=== PATIENT | male | born 1950 | race Caucasian/White ===

== ENCOUNTER 2019-01-10 14:19 | Inpatient (IN) ==
[2019-01-10] MEDS ORDERED: LISINOPRIL 10 MG TABLET PO ONE (14:30)
[2019-01-10] MEDS ORDERED: amLODIPine BESYLATE 5 MG TABLET PO PRN (14:34)
[2019-01-10 14:45] LABS: Hematocrit 38.6 % (42.0-52.0); Hemoglobin 12.8 gm/dL (13.5-18.0); Mean Cell Volume 86.7 fl (78-100); Mean Corpuscular Hemoglobin 28.8 pg (27-31); Mean Corpuscular Hgb Conc 33.2 g/dl (32-36); Mean Platelet Volume 9.6 fl (8-11.3); Neutrophil # 10.1 K/mm3 (1.3-6.0); Neutrophil % 84.1 % (42-75.0); Platelet Count 333 K/mm3 (150-450); Red Blood Count 4.45 M/mm3 (4.7-6.0); Red Cell Distribution Width 13.8 % (11.5-14.0)
--- NOTE | 2019-01-10 14:50 | ERNOTE ---
Medical Problem HPI - General Chief Complaint: General Assessment Time Seen by Provider: 01/10/19 14:19 Source: patient Exam Limitations: clinical condition - Immun/Allergies/Home Medications Immunizations: IMMUNIZATION HX Immunizations Up to Date Yes History of Influenza Vaccine No Hx Pneumococcal Vaccination Yes Allergies/Adverse Reactions: Allergies No Known Allergies Allergy (Verified 01/10/19 14:25) Home Medications: HOME MEDICATIONS amlodipine 5 mg tablet 5 mg PO DAILY #90 tab 09/28/18 [Last Taken Unknown] aspirin 325 mg tablet,delayed release 325 mg PO DAILY #90 tab 09/28/18 [Last Taken Unknown] lisinopril 10 mg tablet 10 mg PO DAILY #90 tab 09/28/18 [Last Taken Unknown] - History of Present History Narrative: Patient lives by himself with home health checking on him. When they came today it appeared that he has had no food and possibly no water for a few days. Patient states that he did not eat anything for a few says as he didn't make it to the store. He has not taken any of his medication as he didn't have them (wasn't able to pick them up? had no money for them?) He denies any physical complaints at this time, knows his name and location but not the time or situation, admits to smoking cigarettes According to the chart he has a history of stroke and memory loss, seemed confused at his last office visit. Neck mass per note was evaluated By Dr Anaya and is benign He has also been seen for an adenocarcinoma in the past, no records available of that at this time. Patient decided on no intervention at that time? Patient is currently not aware that he has cancer Review of Systems - Review of Systems Constitutional: Present: fatigue. Absent: recent illness, fever ENT: Absent: nose congestion, sore throat Respiratory: Absent: shortness of breath, cough Cardiology: Absent: chest pain Gastrointestinal/Abdominal: Absent: nausea, vomiting, abdominal pain Genitourinary: Present: no symptoms reported Musculoskeletal: Absent: back pain Neurological: Present: weakness - generalized. Absent: headache Medical History (Updated 01/10/19 @ 17:13 by Regina Torres MD) Adenocarcinoma CKD (chronic kidney disease) stage 3, GFR 30-59 ml/min Onset Date: 03/26/16 GFR - 54 H/O TIA (transient ischemic attack) and stroke Onset Date: 03/21/16 HTN (hypertension) Onset Date: 03/21/16 Hyperlipidemia Onset Date: 03/21/16 Low vitamin B12 level Onset Date: 03/26/16 Memory loss Onset Date: Unknown Neck mass Onset Date: Unknown Osteoarthritis Onset Date: 03/21/16 Bilateral TKA Tobacco abuse Onset Date: Unknown Surgical History: Surgical History (Updated 01/10/19 @ 17:13 by Regina Torres MD) mediastinoscopy with lymphnode disection. 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 - benign tubular adenoma, benign hyperplastic polyp, tubulovillous adenoma Hx of knee surgery 1979 Hx of total knee replacement 2004 bilateral Kidney stone removal 2003 Family History: Family History (Updated 01/03/18 @ 06:18 by Demi Maya) Brother CVA (cerebral vascular accident) Social History: (Last Reviewed 01/10/19 @ 14:25 by Susan Hairston RN) Social History: Marital status: current occupational status: retired Service: No Tobacco: Smoking Status: Current every day smoker Alcohol: alcohol intake: former details: Used to drink heavily. Quit age 60. Now occasionally. Substance Use: substance use type: marijuana Dietary Habits: caffeine: Yes caffeine comment: Current every day Physical Exam - Physical Exam General Appearance: Present: wd/wn, alert, no apparent distress, thin Head Exam: Present: normal inspection, no evidence of injury Eye Exam: Normal inspection: bilateral, PERRL: bilateral Ears, Nose, Throat: Present: normal ENT inspection, dry mucous membranes Neck: Present: normal inspection - except, lymphadenopathy (R) - mobile, non tener Respiratory: Present: no respiratory distress, no accessory muscle use, lungs clear, decreased breath sounds Cardiovascular/Chest: Present: regular rate, rhythm, no murmur Gastrointestinal/Abdominal: Present: normal bowel sounds, nontender, nondistended, soft Extremity Exam: Present: no edema Neurological Exam: Present: alert, normal mood/affect, no motor/sensory deficits, disoriented to time, disoriented to situation. Absent: disoriented to person, disoriented to place Skin Exam: Present: normal color, warm/dry Progress - Results and Orders Patient's Lab Results:: I have reviewed the patient's lab results. - Vital Signs Patient's Vital Signs:: I have reviewed the patient's vital signs. Vital Signs: Vital Signs 01/10/19 14:21 01/10/19 14:40 01/10/19 14:41 Temperature 37.4 C Pulse Rate 79 74 74 Respiratory Rate 14 Blood Pressure 203/110 H 197/105 H 197/105 H O2 Sat by Pulse Oximetry 95 - X-Ray X-Ray #1 X-Ray: chest - large upper obe mass Interpretation: Reviewed by me - CT/Ultrasound CT/Ultrasound Narrative: CT head: IMPRESSION: 1. No evidence for acute intracranial hemorrhage. 2. Localized area of low density within the central right cerebellar hemisphere, with loss of flores-white matter differentiation and potential localized edema. Differential diagnosis includes possible mass versus acute to subacute infarct. 3. Additional areas of low density within the inferior right cerebellar hemisphere, left occipital lobe, and left caudate nucleus suggestive of old infarcts. 4. Paranasal sinus disease as above. 5. Lesion within the left parotid gland suspicious for potential malignancy, either primary to the parotid gland versus metastatic disease. This was demonstrated on previous soft tissue neck CT from 10/05/2018. 6. Mild ventriculomegaly without sulcal effacement. Consider normal pressure hydrocephalus. 7. Consider further evaluation by brain MRI without and with contrast. 8. Additional comments as above. - Progress/Reassessment Chief Complaint: General Assessment Progress Note-Subjective: 01/10/19 15:30 blood pressure continue to be elevated in spite of oral medication, will treat with IV labetolol 01/10/19 16:27 discussed test results with patient and friends who are present, friend states that she brings him food every day and he eats at least a small amount blood pressure elevated to 200 systolic again, will treat with full dose of labetalol 01/10/19 16:28 discussed with neri Hutson to admit for hypertensive urgeny she will see patient here before admission to the floor Departure Clinical Impression: Asymptomatic hypertensive urgency, Confusion, Mass of left lung - Departure Disposition: Still a patient Condition: Stable
[2019-01-10 15:14] LABS: ALT 10 U/L (19-67); AST 16 U/L (0-48); Albumin * 2.6 gm/dl (3.4-5.0); Alkaline Phosphatase * 81 U/L (50-170); Anion Gap 17.6 mmol/L (6.8-13.8); Bilirubin, Total 0.5 mg/dL (0.0-1.1); Blood Urea Nitrogen 20 mg/dL (6-23); Ca. Corrected For Albumin 10.1 mg/dL (8.4-10.2); Calcium * 9.3 mg/dL (7.9-10.9); Carbon Dioxide 25.6 mmol/L (24-32.6); Chloride 104 mmol/L (97-106); Glucose * 94 mg/dL (70-110); Potassium 3.2 mmol/L (3.4-4.6); Sodium 144 mmol/L (132-142); Total Protein 7.2 gm/dL (6.2-8.2)
[2019-01-10] MEDS ORDERED: LABETALOL HCL 5 MG/ML VIAL IV ONE ×2 (15:28→16:27)
--- NOTE | 2019-01-10 17:13 | HP ---
Chief Complaint - Chief Complaint Date of Service: 01/10/19 Time of Service: 16:45 Chief Complaint: Elevated blood pressure, failure to thrive History of Present Illness: 68-year-old male with a past medical history of Warthins tumor hypertension, hyperlipidemia, osteoarthritis, tobacco abuse presents from home after being found by home health with elevated blood pressure, significant weight loss and poor self-care. The home health aide called his primary care's office to inform him of the patient's condition and he was to the sent to the emergency department. In the emergency department he was found to have a blood pressure of 211/105. He was started on labetalol and his home blood pressure medications were restarted. The patient had not been refilling his blood pressure medications at home. He had been having friends bring him food to eat. He was found to have a mild leukocytosis, mild anemia, and mild hyperkalemia. He is being admitted for hypertensive urgency. Mild hyponatremia. Medical History (Updated 01/10/19 @ 17:18 by Regina Torres MD) Adenocarcinoma CKD (chronic kidney disease) stage 3, GFR 30-59 ml/min Onset Date: 03/26/16 GFR - 54 H/O TIA (transient ischemic attack) and stroke Onset Date: 03/21/16 HTN (hypertension) Onset Date: 03/21/16 Hyperlipidemia Onset Date: 03/21/16 Low vitamin B12 level Onset Date: 03/26/16 Memory loss Onset Date: Unknown Neck mass Onset Date: Unknown Osteoarthritis Onset Date: 03/21/16 Bilateral TKA Tobacco abuse Onset Date: Unknown Surgical History: Surgical History (Updated 01/10/19 @ 17:13 by Regina Torres MD) mediastinoscopy with lymphnode disection. 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 - benign tubular adenoma, benign hyperplastic polyp, tubulovillous adenoma Hx of knee surgery 1979 Hx of total knee replacement 2004 bilateral Kidney stone removal 2003 Family History: Family History (Updated 01/03/18 @ 06:18 by Demi Maya) Brother CVA (cerebral vascular accident) Social History: (Last Reviewed 01/10/19 @ 14:25 by Susan Hairston RN) Social History: Marital status: current occupational status: retired Service: No Tobacco: Smoking Status: Current every day smoker Alcohol: alcohol intake: former details: Used to drink heavily. Quit age 60. Now occasionally. Substance Use: substance use type: marijuana Dietary Habits: caffeine: Yes caffeine comment: Current every day Review Of Systems (GEN) - Review of Systems Generalized/Overall Review: Absent: Chills, Fever EENTM: Absent: Eye Pain Respiratory: Absent: Shortness of Breath Cardiac: Absent: Chest Pain Abdominal: Absent: Abdominal Pain Misc: All systems neg except as marked Immunizations: IMMUNIZATION HX Immunizations Up to Date Yes History of Influenza Vaccine No Hx Pneumococcal Vaccination Yes Allergies/Adverse Reactions: Allergies Allergy/AdvReac Type Severity Reaction Status Date / Time No Known Allergies Allergy Verified 01/10/19 14:25 Exam - Exam Vital Signs: Vital Signs - Last Taken Temp 37.4 C 01/10/19 14:21 Pulse 75 01/10/19 16:38 Resp 15 01/10/19 15:46 BP 209/93 H 01/10/19 16:38 Pulse Ox 95 01/10/19 15:46 Constitutional: Present: Alert, Thin and frail, Looks Older than stated age. Absent: Oriented x3 - Oriented to person and place not time ENT Exam: Present: hearing grossly normal Eye Exam: bilateral eye: normal inspection, PERRL, EOMI Neck: Present: non-tender. Absent: lymphadenopathy (R), lymphadenopathy (L) Back Exam: Present: no CVA tenderness, no vertebral tenderness Respiratory: Present: lungs clear, normal breath sounds, no accessory muscle use, No wheezing. Absent: crackles, rhonchi Cardiovascular/Chest: Present: normal peripheral pulses, regular rate, rhythm, no edema Peripheral Pulses: dorsalis-pedis (R): 1+, dorsalis-pedis (L): 1+ Abdomen: Present: Normal bowel sounds, soft, nontender Skin Exam: Present: normal color, warm/dry Neurologic: Present: alert Appearance: Present: disheveled, impaired insight Eye contact: Present: cooperative, good eye contact Thoughts: Present: normal mood /affect Diagnostic Studies: Abnormal Lab Results 01/10/19 01/10/19 Range/Units 14:40 14:40 WBC 12.0 H (4.0-10.5) K/mm3 RBC 4.45 L (4.7-6.0) M/mm3 Hgb 12.8 L (13.5-18.0) gm/dL Hct 38.6 L (42.0-52.0) % Immature Gran % (Auto) 0.50 H (0.001-0.429) % Immature Gran # (Auto) 0.06 H (0.000-0.0310) K/mm3 Neutrophils % 84.1 H (42-75.0) % Lymphocytes % 7.7 L (20-51) % Neutrophils # 10.1 H (1.3-6.0) K/mm3 Lymphocytes # 0.92 L (1.5-3.5) k/mm3 Sodium 144 H (132-142) mmol/L Plasma Sodium 144 H (130-142) mmol/L Potassium 3.2 L (3.4-4.6) mmol/L Anion Gap 17.6 H (6.8-13.8) mmol/L Creatinine 1.43 H (0.4-1.4) mg/dL Est GFR (Non-Af Amer) 52 L (60-130) mL/min ALT 10 L (19-67) U/L Albumin 2.6 L (3.4-5.0) gm/dl Laboratory Results WBC 12.0 K/mm3 (4.0-10.5) H 01/10/19 14:40 RBC 4.45 M/mm3 (4.7-6.0) L 01/10/19 14:40 Hgb 12.8 gm/dL (13.5-18.0) L 01/10/19 14:40 Hct 38.6 % (42.0-52.0) L 01/10/19 14:40 MCV 86.7 fl (78-100) 01/10/19 14:40 MCH 28.8 pg (27-31) 01/10/19 14:40 MCHC 33.2 g/dl (32-36) 01/10/19 14:40 RDW 13.8 % (11.5-14.0) 01/10/19 14:40 Plt Count 333 K/mm3 (150-450) 01/10/19 14:40 MPV 9.6 fl (8-11.3) 01/10/19 14:40 Immature Gran % (Auto) 0.50 % (0.001-0.429) H 01/10/19 14:40 Immature Gran # (Auto) 0.06 K/mm3 (0.000-0.0310) H 01/10/19 14:40 84.1 % (42-75.0) H 01/10/19 14:40 7.7 % (20-51) L 01/10/19 14:40 6.0 % (0.0-9) 01/10/19 14:40 1.3 % (0.0-3.0) 01/10/19 14:40 0.4 % (0.0-1.0) 01/10/19 14:40 Nucleated RBC % 0.0 k/mm3 (0-1) 01/10/19 14:40 10.1 K/mm3 (1.3-6.0) H 01/10/19 14:40 0.92 k/mm3 (1.5-3.5) L 01/10/19 14:40 0.7 k/mm3 (0.0-1.0) 01/10/19 14:40 0.2 k/mm3 (0.0-0.7) 01/10/19 14:40 Absolute Basophils 0.1 k/mm3 (0.0-0.1) 01/10/19 14:40 Sodium 144 mmol/L (132-142) H 01/10/19 14:40 144 mmol/L (130-142) H 01/10/19 14:40 Potassium 3.2 mmol/L (3.4-4.6) L 01/10/19 14:40 Chloride 104 mmol/L (97-106) 01/10/19 14:40 Carbon Dioxide 25.6 mmol/L (24-32.6) 01/10/19 14:40 17.6 mmol/L (6.8-13.8) H 01/10/19 14:40 BUN 20 mg/dL (6-23) D 01/10/19 14:40 1.43 mg/dL (0.4-1.4) H 01/10/19 14:40 Est GFR (Non-Af Amer) 52 mL/min (60-130) L 01/10/19 14:40 14.0 (9.0-21.6) 01/10/19 14:40 94 mg/dL (70-110) 01/10/19 14:40 Calcium 9.3 mg/dL (7.9-10.9) 01/10/19 14:40 Calcium Adj for Albumin 10.1 mg/dL (8.4-10.2) 01/10/19 14:40 0.5 mg/dL (0.0-1.1) 01/10/19 14:40 AST 16 U/L (0-48) 01/10/19 14:40 ALT 10 U/L (19-67) L 01/10/19 14:40 81 U/L (50-170) 01/10/19 14:40 7.2 gm/dL (6.2-8.2) 01/10/19 14:40 2.6 gm/dl (3.4-5.0) L 01/10/19 14:40 Ethyl Alcohol Less than 3.0 mg/dL (0.0-10.0) 01/10/19 14:40 Assessment/Plan - Narrative Narrative: 68-year-old male with a past medical history of Warthins tumor hypertension, hyperlipidemia, osteoarthritis, tobacco abuse presents from home after being found by home health with elevated blood pressure, significant weight loss and poor self-care. In the emergency department he was found to have a blood pressure of 211/105. He is being admitted for hypertensive urgency. Resume his home blood pressure medications of lisinopril and amlodipine. His blood pressures trending down with IV labetalol. If he is agreeable on discharge he will need to follow-up with a tree tapping laborer or hematology/oncology for work-up of the left lung mass. - Assessment/Plan (1) Asymptomatic hypertensive urgency Problem: Acute (2) Confusion Problem: Chronic (3) Hyperlipidemia Problem: Chronic (4) CKD (chronic kidney disease) stage 3, GFR 30-59 ml/min Problem: Chronic (5) Mass of left lung Problem: Chronic
[2019-01-10] MEDS ORDERED: POTASSIUM BICARBONATE/CIT AC 25 MEQ TABLET.EFF PO ONE (17:23)
[2019-01-11 05:55] LABS: Albumin * 2.3 gm/dl (3.4-5.0); Anion Gap 13.1 mmol/L (6.8-13.8); BUN/Creatinine Ratio 16.4 (9.0-21.6); Bilirubin, Total 0.4 mg/dL (0.0-1.1); Ca. Corrected For Albumin 9.4 mg/dL (8.4-10.2); Calcium * 8.4 mg/dL (7.9-10.9); Carbon Dioxide 25.9 mmol/L (24-32.6); Total Protein 6.5 gm/dL (6.2-8.2)
[2019-01-11] MEDS ORDERED: LISINOPRIL 10 MG TABLET PO SCH ×2 (09:00→10:15)
[2019-01-11] MEDS ORDERED: POTASSIUM BICARBONATE/CIT AC 25 MEQ TABLET.EFF PO ONE ×2 (09:03→13:56)
[2019-01-11] MEDS: amLODIPine BESYLATE 5 MG TABLET PO SCH (09:42)
[2019-01-11 09:56] LABS: Urine Bilirubin Negative (NEGATIVE); Urine Blood Negative /ul (NEGATIVE); Urine Ketone 5 mg/dL (NEGATIVE); Urine Nitrite Negative (NEGATIVE); Urine Protein 15 mg/dL (NEGATIVE); Urine Urobilinogen Normal (NORMAL)
[2019-01-11 10:03] LABS: Urine Appearance Clear (CLEAR); Urine Color Amber
[2019-01-11 10:06] LABS: Urine WBC None Seen /hpf (0-5)
[2019-01-11 10:07] LABS: Urine Bacteria None Seen; Urine Hyaline Cast TRACE /LPF; Urine RBC None Seen /hpf (0-5)
[2019-01-11 10:09] LABS: Cocaine Ur Negative (NEGATIVE); Urine Barbiturate Negative (NEGATIVE); Urine Benzodiazepines Negative (NEGATIVE); Urine Opiates Negative (NEGATIVE); Urine PCP Negative (NEGATIVE)
[2019-01-11 10:22] LABS: Urine THC Positive (NEGATIVE)
--- NOTE | 2019-01-11 13:31 | PN ---
Subjective - Date and Time Seen Date: 01/11/19 Time: 09:05 Subjective Narrative: He feels well today, no complaints. Objective - Review of Systems Generalized/Overall Review: Denies: Chills, Fever Respiratory: Denies: Shortness of Breath Cardiac: Denies: Chest Pain Abdominal: Denies: Abdominal Pain Musculoskeletal Complaints: Denies: Joint Pain Misc: All systems neg except as marked - Vitals Vitals: Last Vital Signs Temp 36.5 C 01/11/19 10:00 Pulse 69 01/11/19 10:30 Resp 20 01/11/19 10:00 BP 154/90 H 01/11/19 10:00 Pulse Ox 98 01/11/19 10:00 - Abnormal Lab Findings Abnormal Lab Findings: Abnormal Lab Results 01/10/19 01/10/19 01/11/19 Range/Units 14:40 14:40 05:34 WBC 12.0 H (4.0-10.5) K/mm3 RBC 4.45 L (4.7-6.0) M/mm3 Hgb 12.8 L (13.5-18.0) gm/dL Hct 38.6 L (42.0-52.0) % Immature Gran % (Auto) 0.50 H (0.001-0.429) % Immature Gran # (Auto) 0.06 H (0.000-0.0310) K/mm3 Neutrophils % 84.1 H (42-75.0) % Lymphocytes % 7.7 L (20-51) % Neutrophils # 10.1 H (1.3-6.0) K/mm3 Lymphocytes # 0.92 L (1.5-3.5) k/mm3 Sodium 144 H (132-142) mmol/L Plasma Sodium 144 H (130-142) mmol/L Potassium 3.2 L 3.0 L (3.4-4.6) mmol/L Anion Gap 17.6 H (6.8-13.8) mmol/L Creatinine 1.43 H (0.4-1.4) mg/dL Est GFR (Non-Af Amer) 52 L 59 L (60-130) mL/min ALT 10 L 13 L (19-67) U/L Albumin 2.6 L 2.3 L (3.4-5.0) gm/dl Urine Protein (NEGATIVE) mg/dL Urine Marijuana (THC) (NEGATIVE) 01/11/19 01/11/19 Range/Units 08:00 08:00 WBC (4.0-10.5) K/mm3 RBC (4.7-6.0) M/mm3 Hgb (13.5-18.0) gm/dL Hct (42.0-52.0) % Immature Gran % (Auto) (0.001-0.429) % Immature Gran # (Auto) (0.000-0.0310) K/mm3 Neutrophils % (42-75.0) % Lymphocytes % (20-51) % Neutrophils # (1.3-6.0) K/mm3 Lymphocytes # (1.5-3.5) k/mm3 Sodium (132-142) mmol/L Plasma Sodium (130-142) mmol/L Potassium (3.4-4.6) mmol/L Anion Gap (6.8-13.8) mmol/L Creatinine (0.4-1.4) mg/dL Est GFR (Non-Af Amer) (60-130) mL/min ALT (19-67) U/L Albumin (3.4-5.0) gm/dl Urine Protein 15 H (NEGATIVE) mg/dL Urine Marijuana (THC) Positive H (NEGATIVE) - Exam Constitutional: Present: Alert, No distress, Thin and frail, Looks Older than stated age. Absent: Oriented x3 - Oriented to person and place, Well developed, Well nourished ENT Exam: Present: hearing grossly normal Neck: Present: lymphadenopathy (L). Absent: lymphadenopathy (R) Respiratory: Present: lungs clear, no accessory muscle use, No wheezing. Absent: crackles Cardiovascular/Chest: Present: normal peripheral pulses, regular rate, rhythm, no murmur Abdomen: Present: Normal bowel sounds, soft, nontender Extremity: Present: non-tender, no pedal edema Skin Exam: Present: normal color, warm/dry Neurologic: Present: alert, normal mood/affect Appearance: Present: disheveled Eye contact: Present: cooperative, good eye contact Thoughts: Present: normal mood /affect Assessment/Plan Plan Narrative: 68-year-old male with a past medical history of Warthins tumor hypertension, hyperlipidemia, osteoarthritis, tobacco abuse presents from home after being found by home health with elevated blood pressure, significant weight loss and poor self-care. In the emergency department he was found to have a blood pressure of 211/105. He is being admitted for hypertensive urgency. Resume his home blood pressure medications of lisinopril and amlodipine. His blood pressures have improved but his BP increased with ambulation to 180- 190/80, I will give one dose of IV lopressor 5mg. I will increase his lisinopril to 20 mg daily. He has a h/o of left lung mass and per his daughter in law he had refused surgical resection of the mass several years ago. He continues to not want the surgical intervention at this time. Since he is refusing treatment he may be a good candidate for hospice. He will remain hospitalized pending discharge plan. He is not stable enough to return home alone. He was not taking good care of himself and was not compliant with his blood pressure medication. - Problems/Diagnosis (1) Asymptomatic hypertensive urgency Problem: Acute (2) Confusion Problem: Chronic (3) Hyperlipidemia Problem: Chronic (4) CKD (chronic kidney disease) stage 3, GFR 30-59 ml/min Problem: Chronic (5) Mass of left lung Problem: Chronic (6) Hypokalemia Problem: Acute Narrative: Replete as needed, repeat CMP in the morning. (7) Failure to thrive in adult Problem: Acute
[2019-01-11] MEDS ORDERED: METOPROLOL TARTRATE 1 MG/ML AMPUL IV ONE (15:39)
[2019-01-11] MEDS ORDERED: LISINOPRIL 20 MG TABLET PO ONE (18:00)
[2019-01-11] MEDS: NICOTINE 7 MG PATC TD SCH (19:57)
[2019-01-11] MEDS: LORazepam 0.5 MG TABLET PO PRN (19:57)
[2019-01-11] MEDS: TAMSULOSIN HCL 0.4 MG CAP.SR.24H PO SCH (19:58)
[2019-01-12] MEDS: LORazepam 0.5 MG TABLET PO PRN ×3 (03:18→18:40)
[2019-01-12 06:04] LABS: Albumin * 2.5 gm/dl (3.4-5.0); Anion Gap 15.6 mmol/L (6.8-13.8); BUN/Creatinine Ratio 12.6 (9.0-21.6); Bilirubin, Total 0.5 mg/dL (0.0-1.1); Ca. Corrected For Albumin 9.2 mg/dL (8.4-10.2); Calcium * 8.3 mg/dL (7.9-10.9); Carbon Dioxide 26.4 mmol/L (24-32.6); Total Protein 6.1 gm/dL (6.2-8.2)
--- NOTE | 2019-01-12 09:21 | PN ---
Subjective - Date and Time Seen Date: 01/12/19 Time: 09:21 Subjective Narrative: Patient was agitated and restless yesterday evening, and having difficulty urinating. Nursing reported bladder spasms while trying to catheterize him. His BP elevated again, and was given an extra dose of 20 mg lisinopril. He was started on 0.5 mg ativan. This morning, he is less responsive per report, and does not answer questions. Objective - Review of Systems Generalized/Overall Review: Reports: No Symptoms Reported - patient not answering questions - Vitals Vitals: Last Vital Signs Temp 37.3 C 01/12/19 08:38 Pulse 98 01/12/19 08:38 Resp 24 H 01/12/19 08:38 BP 206/106 H 01/12/19 08:38 Pulse Ox 96 01/12/19 08:38 - Abnormal Lab Findings Abnormal Lab Findings: Abnormal Lab Results 01/11/19 01/11/19 01/12/19 Range/Units 08:00 08:00 05:00 Anion Gap 15.6 H (6.8-13.8) mmol/L ALT 15 L (19-67) U/L Total Protein 6.1 L (6.2-8.2) gm/dL Albumin 2.5 L (3.4-5.0) gm/dl Urine Protein 15 H (NEGATIVE) mg/dL Urine Marijuana (THC) Positive H (NEGATIVE) - Exam Constitutional: Present: No distress, Thin and frail Neck: Present: other - 6X3 cm right upper lateral neck mass Respiratory: Present: lungs clear, no respiratory distress Cardiovascular/Chest: Present: regular rate, rhythm Abdomen: Present: Normal bowel sounds /Rectal: Present: Other - enlarged prostate. Positive anal wink Extremity: Absent: lower extremity edema Neurologic: Present: other - does not answer questions or make eye contact Assessment/Plan - Problems/Diagnosis (1) Confusion Problem: Chronic Narrative: Confusion is listed as a problem in his chart. He is not answering questions for me today, which seems to be new since yesterday. He was started on 0.5 mg ativan yesterday evening for agitation, which may be why he is less responsive. He did not have significant electrolyte abnormalites on labs today, but his albumin is low. If he does not have significant po intake, will need to administer IV fluids with dextrose. There is also some concern for PRES, with his change in mental status and very high blood pressure. While doing this note, I checked on him again, and he is sitting up, making eye contact, so he is more alert than earlier, making PRES less likely. Would recommend a brain MRI for changes in mentation, should they occur over the next few days. (2) Mass of left lung Problem: Chronic Narrative: Chart review shows this mass has been present, and he declined surgical intervention. He also has a visible right upper neck mass, and CT imagine done in September showed suspicious masses of the right and left parotids. There is a documented 18 pound weight loss since 11/29/18. He is not able to make decisions currently, and case management is helping determine who is able to make medical decisions for him. If he declined intervention, he is an appropriate hospice candidate. (3) Prostate enlargement Problem: Acute Narrative: Dr. Varner was consulted, who plans on placing a catheter in the OR if consent is obtained. (4) Urinary retention Problem: Acute (5) CKD (chronic kidney disease) stage 3, GFR 30-59 ml/min Problem: Chronic (6) Hypertension Problem: Chronic Qualifiers: Hypertension type: essential hypertension Qualified Code(s): I10 - Essential (primary) hypertension Narrative: Is currently prescribed 5 mg amlodipine, and 20 mg lisinopril. He had highly elevated BP again last night, greater than 200/100, and an additional 20 mg lisinopril was given. BP today is 180's/90's. Will plan on decreasing his BP by 25% in 24 hours, with a goal of 160/100 by tonight. His elevated BP may also be due to agitation, or urinary retention. His BP was down to 112/67 on 01/10, and he had several low readings that day. If his BP is still elevated over the next few hours, recommend increasing daily lisinopril to 40 mg.
[2019-01-12] MEDS: amLODIPine BESYLATE 5 MG TABLET PO SCH (10:11)
[2019-01-12] MEDS: LISINOPRIL 20 MG TABLET PO SCH (10:11)
--- NOTE | 2019-01-12 13:08 | CONS ---
HPI - General Date of Service: 01/12/19 Source: RN/MD - History of Present Illness Initial Comments: 68-year-old male who I am consulted on for difficult Rodriguez catheter placement. Of note the patient is delirious/demented and is unable to provide any kind of history whatsoever. All history comes from discussion with nursing or physician. Apparently he has metastatic lung cancer and was admitted for delirium. Sounds like palliative situation. Apparently he has been unable to void significant amounts and just dribbles. We do not have a bladder scanner available on the floor but nursing thinking he is having difficulties urinating. They have attempted to place a coud catheter x2 without success. I do not have any known urological history on him. Allergies/Adverse Reactions: Allergies No Known Allergies Allergy (Verified 01/10/19 14:25) Home Medications: Home Medications Medication Instructions Recorded Last Taken amlodipine 5 mg tablet 5 mg PO DAILY #90 tab 09/28/18 Unknown aspirin 325 mg tablet,delayed 325 mg PO DAILY #90 tab 09/28/18 Unknown release lisinopril 10 mg tablet 10 mg PO DAILY #90 tab 09/28/18 Unknown Procedures Plain Radiography of Bladder (01/12/18) Medications - Medications Current Medications: Current Medications Amlodipine Besylate (Norvasc) 5 mg PO DAILY [facility] Stop: 02/10/19 09:01 Last Admin: 01/12/19 10:11 Dose: 5 mg Documented by: Lisinopril (Zestril) 20 mg PO DAILY [facility] Stop: 02/11/19 09:01 Last Admin: 01/12/19 10:11 Dose: 20 mg Documented by: Lorazepam (Ativan) 0.5 mg PO Q6H PRN PRN Reason: Anxiety Stop: 02/10/19 19:16 Last Admin: 01/12/19 10:11 Dose: 0.5 mg Documented by: Nicotine (Nicoderm) 7 mg TD Q24H [facility] Stop: 02/10/19 20:01 Last Admin: 01/11/19 19:57 Dose: 7 mg Documented by: Tamsulosin HCl (Flomax) 0.4 mg PO DAILY@1800 [facility] Stop: 02/10/19 20:01 Last Admin: 01/11/19 19:58 Dose: 0.4 mg Documented by: Review of Systems - Review of Systems Narrative: unable to obtain because of patient condition. Physical Examination - Exam Vital Signs: Vital Signs - Last Taken Temp 97.9 F 01/12/19 09:23 Pulse 104 H 01/12/19 10:11 Resp 28 H 01/12/19 09:23 BP 188/90 H 01/12/19 10:11 Pulse Ox 94 01/12/19 09:23 O2 Oxygen Delivery Method Room Air Constitutional: Present: Thin and frail, Looks Younger than stated age ENT Exam: Present: normal ENT inspection, pharynx normal Neck: Present: full range of motion Respiratory: Present: lungs clear Cardiovascular/Chest: Present: normal peripheral pulses, regular rate, rhythm Abdomen: Present: soft, nontender, other - bladder palpable /Rectal: Present: External genitalia normal, Other - Attempted to place an 18 Fr Coude. Nursing had to help hold down because noncooperative. Patient was prepped and draped. Catheter was advanced but seem to curl up within the prostate and despite some maneuvering I was unable to successfully place a catheter Appearance: Present: disheveled Thoughts: Present: incoherent - Results and Findings: Narrative: Patient appears to be in retention and unable to place a catheter on the floor because of patient being uncooperative and likely BPH although stricture disease is possible After discussion with the primary team we feel like a catheter is needed. I will thus add him on for cystoscopy with catheter placement likely over a wire. Possible urethral dilation. He does not have any family to consent and he is himself on consent verbal. However I am declaring this somewhat of an emergency and in the patient's best interest given the clinical situation. Lab/Microbiology results last 24 hrs: Abnormal/Pending Laboratory Last 24 HRS 01/12/19 05:00 Anion Gap 15.6 H ALT 15 L Total Protein 6.1 L Albumin 2.5 L
--- NOTE | 2019-01-12 13:25 | ANES ---
Anesthesia Pre Procedure Eval Vitals/Labs: Last Vital Signs Temp 36.6 C 01/12/19 09:23 Pulse 104 H 01/12/19 10:11 Resp 28 H 01/12/19 09:23 BP 188/90 H 01/12/19 10:11 Pulse Ox 94 01/12/19 09:23 HOME MEDICATIONS amlodipine 5 mg tablet 5 mg PO DAILY #90 tab 09/28/18 [Last Taken Unknown] aspirin 325 mg tablet,delayed release 325 mg PO DAILY #90 tab 09/28/18 [Last Taken Unknown] lisinopril 10 mg tablet 10 mg PO DAILY #90 tab 09/28/18 [Last Taken Unknown] Allergies/Adverse Reactions: Allergies Allergy/AdvReac Type Severity Reaction Status Date / Time No Known Allergies Allergy Verified 01/10/19 14:25 - Planned Procedure Planned Procedure: Confusion, Hypertension Urgency Medication List Reviewed:: Yes Allergies Verified: Yes Medical History (Updated 01/12/19 @ 12:57 by Kirstin Mckoy DO) CVA (cerebral vascular accident) ~2011 (approximate onset) Parotid tumor Onset Date: 01/20/18 Right, Warthin's tumor 01/20/18 Primary lung adenocarcinoma Onset Date: 12/21/17 pt has not had treatment/ surgical intervention since diagnosed in 11/2017 Adenocarcinoma Onset Date: 12/21/17 Left Lung upper lobe CKD (chronic kidney disease) stage 3, GFR 30-59 ml/min Onset Date: 03/26/16 GFR - 54 H/O TIA (transient ischemic attack) and stroke Onset Date: 03/21/16 HTN (hypertension) Onset Date: 03/21/16 Hyperlipidemia Onset Date: 03/21/16 Low vitamin B12 level Onset Date: 03/26/16 Memory loss Onset Date: Unknown Neck mass Onset Date: Unknown Osteoarthritis Onset Date: 03/21/16 Bilateral TKA Tobacco abuse Onset Date: Unknown Surgical History (Updated 01/11/19 @ 04:44 by Tiffanie Owens RN) mediastinoscopy with lymphnode disection. 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 Polyps removed - benign tubular adenoma, benign hyperplastic polyp, tubulovillous adenoma Hx of knee surgery 1979 Hx of total knee replacement 2005 bilateral Kidney stone removal 2004 Family History (Updated 01/03/18 @ 06:18 by Demi Maya) Brother CVA (cerebral vascular accident) - Family Anesthesia History Family History:: no untoward family reactions to anesthesia - Airway/Neck/Teeth Within Normal Limits:: Yes Teeth Condition: poor condition Neck Exam: full range of motion Mallampatti Score: 1 Thyromental (T-M) distance: > 6 cm Mandibulo Hyoid distance: > 3 cm - Respiratory Respiratory Physical: decreased breath sounds Smoking Status: Former smoker Sleep Apnea currently treated: No Sleep Apnea by current assessment: No - Cardiovascular Cardiac History: TIA Tolerate Activity: Poor Heart Sounds: S1 & S2, Regular - Anesthesia Assessment and Plan ASA Class: PS, III, E Anesthesia Type Plan: MAC Planned difficult intubation/equipment available: No
[2019-01-12] MEDS ORDERED: NORMAL SALINE 1,000 ML IV ONE (13:55)
[2019-01-12] MEDS ORDERED: ceFAZolin SODIUM 1 GM VIAL IV ONE (14:00)
--- NOTE | 2019-01-12 14:20 | OR ---
Operative Report - Dictated Report Narrative: Procedure performed: Flexible cystoscopy with a difficult Rodriguez insertion over a wire Preoperative diagnosis: Urinary retention, inability to place a catheter Postoperative diagnosis: Urinary retention Anesthesia: General Specimen: Bladder wash for urine culture Blood loss: None Findings: Minor irritation in the proximal bulbar urethra insistent with attempted catheter placements, mild prostate enlargement, distended bladder with debris Description the procedure: Patient was brought to the operating room in urgent fashion after failed attempted catheter placement multiple times on the floor. He was consented via his [id number]. General anesthesia was induced using rapid sequence induction. He was prepped and draped in supine position a flexible cystoscope was passed easily down the urethra until I came to the bulbar urethra. There was some irritation of the bulbar urethra consistent with attempted catheter placement. However I was able to navigate through this without significant difficulty. The prostate was mildly enlarged but not significantly obstructive and there was no median lobe. The bladder was distended. There was some debris. Sample was obtained through the scope for culture. A wire was placed through the scope and scope removed. Over the wire to [address] [place] catheter was advanced. Bladder was drained. Patient tolerated well. Plan: Leave the catheter until at least 1 week. Long-term will be dependent on patient medical condition. If indwelling catheter is long-term solution the catheter should be able to be changed in 4 weeks. Given his delirium there is a risk for inadvertent pulling on the catheter. The catheter should be taped down to his leg to try to minimize the chance of this.
--- NOTE | 2019-01-12 14:30 | ANES ---
Post Anesthesia Discharge - Transfer of Care Transfer of Care handoff given to nurse: Yes - Anesthesia Post Op Note Anesthesia Post Op Note: discharged to room 112
--- NOTE | 2019-01-12 14:31 | ANES ---
Post Anesthesia Assessment - Vital Signs Vitals: Last Vital Signs Temp 36.6 C 01/12/19 09:23 Pulse 104 H 01/12/19 10:11 Resp 28 H 01/12/19 09:23 BP 188/90 H 01/12/19 10:11 Pulse Ox 94 01/12/19 09:23 Airway Patency: Normal - Mental Status Level Of Consciousness: Disoriented - Pain Level Pain Score: 0 - N/V Assessment Nausea/Vomiting Presence: None Dehydration:: No
[2019-01-12] MEDS ORDERED: ceFAZolin SODIUM 1 GM VIAL IV PRN (15:00)
[2019-01-12] MEDS: TAMSULOSIN HCL 0.4 MG CAP.SR.24H PO SCH (17:53)
[2019-01-12] MEDS ORDERED: TAMSULOSIN HCL 0.4 MG CAP.SR.24H PO SCH (18:00)
[2019-01-12] MEDS: ACETAMINOPHEN 325 MG TABLET PO PRN (18:40)
[2019-01-12] MEDS: NICOTINE 7 MG PATC TD SCH (20:10)
[2019-01-13] MEDS: ACETAMINOPHEN 325 MG TABLET PO PRN ×3 (01:22→16:11)
[2019-01-13] MEDS: LORazepam 0.5 MG TABLET PO PRN ×3 (01:22→16:11)
[2019-01-13] MEDS: ENOXAPARIN SODIUM 40 MG/0.4 ML SYRG SC SCH (07:18)
[2019-01-13] MEDS: LISINOPRIL 20 MG TABLET PO SCH (09:51)
[2019-01-13] MEDS: amLODIPine BESYLATE 5 MG TABLET PO SCH (09:51)
--- NOTE | 2019-01-13 10:49 | PN ---
Subjective - Date and Time Seen Date: 01/13/19 Time: 10:42 Subjective Narrative: I feel okay. Objective Objective Narrative: 68-year-old male admitted for hypertensive urgency and urinary retention with past medical history of lung cancer was evaluated at bedside was found to be afebrile and in no acute distress. Patient's blood pressure has stabilized and has reached adequate levels. Indwelling urinary catheter was inserted by the urologist Dr. Varner who recommends leaving the catheter in for at least a week and if it is to be left in place on a long-term basis he can be changed after 4 weeks. No new issues or symptoms have developed we will continue to monitor him closely. - Review of Systems Generalized/Overall Review: Reports: No Symptoms Reported EENTM: Reports: No Symptoms Reported Respiratory: Reports: No Symptoms Reported Cardiac: Reports: No Symptoms Reported Abdominal: Reports: No Symptoms Reported Genitourinary Symptoms: Reports: No Symptoms Reported Musculoskeletal Complaints: Reports: No Symptoms Reported Neurological: Reports: Other - Occasional in hospital delirium Skin: Reports: No Symptoms Reported Endocrine: Reports: No Symptoms Reported - Vitals Vitals: Last Vital Signs Temp 36.6 C 01/13/19 10:22 Pulse 92 01/13/19 10:22 Resp 18 01/13/19 10:22 BP 127/84 01/13/19 10:22 Pulse Ox 96 01/13/19 10:22 - Exam Constitutional: Present: Alert, Cooperative, Well developed, Well nourished, No distress, Elderly, Thin and frail ENT Exam: Present: normal ENT inspection, hearing grossly normal, pharynx normal, TMs normal Neck: Present: non-tender, full range of motion, supple, normal inspection, trachea midline Breasts: Present: Exam deferred Respiratory: Present: chest non-tender Cardiovascular/Chest: Present: normal peripheral pulses, regular rate, rhythm, no chest tenderness, no edema, no gallop, no JVD, no murmur, no rub Abdomen: Present: Normal bowel sounds, soft, nontender, nondistended, no rebound tenderness, no hepatospenomegaly, no masses /Rectal: Present: Other - Indwelling urinary catheter in place Extremity: Present: normal range of motion, non-tender, normal inspection, no pedal edema, no calf tenderness, normal capillary refill Skin Exam: Present: normal color, warm/dry, no cyanosis Lymphatic: Present: no adenopathy Neurologic: Present: 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, normal cerebellar test, no motor/sensory deficits, alert, normal mood/affect, oriented x 3 Appearance: Present: appropriate appearance Eye contact: Present: cooperative, good eye contact, normal speech Thoughts: Present: normal thought pattern, no apparent hallucination Cauti Physician Documentation - Urinary Catheter Management Urethral (Rodriguez) Urethral Indwelling: Yes Reason for Continuing Indwelling Catheter: Obstruction/Retention Date of Insertion: 01/12/19 Time of Insertion: 14:15 Assessment/Plan Plan Narrative: Patient tolerated insertion of urinary catheter by the urologist without any issues. Diuresis has been adequate and vital signs are stable. Hypertensive urgency has resolved and patient maintains adequately controlled BP. We will continue to monitor him throughout the weekend. - Problems/Diagnosis (1) Indwelling urinary catheter present Problem: Acute
[2019-01-13] MEDS: TAMSULOSIN HCL 0.4 MG CAP.SR.24H PO SCH (17:00)
[2019-01-13] MEDS: CIPROFLOXACIN HCL 250 MG TABLET PO SCH ×2 (17:00→21:53)
[2019-01-13] MEDS: NICOTINE 7 MG PATC TD SCH (21:51)
[2019-01-14] MEDS: ACETAMINOPHEN 325 MG TABLET PO PRN (03:30)
[2019-01-14] MEDS: LORazepam 0.5 MG TABLET PO PRN ×2 (03:30→20:50)
[2019-01-14] MEDS: CIPROFLOXACIN HCL 250 MG TABLET PO SCH ×2 (08:29→20:50)
[2019-01-14] MEDS: ENOXAPARIN SODIUM 40 MG/0.4 ML SYRG SC SCH (08:29)
[2019-01-14] MEDS: amLODIPine BESYLATE 5 MG TABLET PO SCH (08:29)
[2019-01-14] MEDS: LISINOPRIL 20 MG TABLET PO SCH (08:30)
--- NOTE | 2019-01-14 15:05 | PN ---
Subjective - Date and Time Seen Date: 01/14/19 Time: 14:56 Subjective Narrative: I feel okay. Objective Objective Narrative: 68-year-old male admitted initially for hypertensive urgency and urinary retention, and now diagnosed UTI was evaluated at bedside was found to be afebrile and in no acute distress. Patient's blood pressure continued to show improvement and he maintains stable vitals. UTI was confirmed with urine culture results and patient had a bout of fever so he was started on IV Cipro, which he is tolerating well. He denies any development of new symptoms or concerns. Patient lives alone and has poor social support, therefore he is unable to return home at the moment. Therefore we will keep him for an additional day for continued treatment with antibiotics and antihypertensive to control BP, and will discuss discharge planning with the transplant case manager in the morning. - Review of Systems Generalized/Overall Review: Reports: No Symptoms Reported EENTM: Reports: No Symptoms Reported Respiratory: Reports: No Symptoms Reported Cardiac: Reports: No Symptoms Reported Abdominal: Reports: No Symptoms Reported Genitourinary Symptoms: Reports: No Symptoms Reported Musculoskeletal Complaints: Reports: No Symptoms Reported Neurological: Reports: No Symptoms Reported Skin: Reports: No Symptoms Reported Endocrine: Reports: No Symptoms Reported - Vitals Vitals: Last Vital Signs Temp 37.3 C 01/14/19 14:41 Pulse 85 01/14/19 14:41 Resp 18 01/14/19 14:41 BP 156/85 H 01/14/19 14:41 Pulse Ox 95 01/14/19 14:41 - Exam Constitutional: Present: Alert, Oriented x3, Cooperative, Well developed, Well nourished, No distress, Thin and frail, Looks Older than stated age ENT Exam: Present: normal ENT inspection, hearing grossly normal, pharynx normal, TMs normal Neck: Present: non-tender, full range of motion, supple, normal inspection, trachea midline Breasts: Present: Exam deferred Respiratory: Present: chest non-tender, lungs clear, normal breath sounds, no respiratory distress, no accessory muscle use Cardiovascular/Chest: Present: normal peripheral pulses, regular rate, rhythm, no chest tenderness, no edema, no gallop, no JVD, no murmur, no rub Abdomen: Present: Normal bowel sounds, soft, nontender, nondistended, no rebound tenderness, no hepatospenomegaly, no masses /Rectal: Present: Exam deferred Extremity: Present: normal range of motion, non-tender, normal inspection, no pedal edema, no calf tenderness, normal capillary refill Skin Exam: Present: normal color, warm/dry, no cyanosis Lymphatic: Present: no adenopathy Neurologic: Present: 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, normal cerebellar test, no motor/sensory deficits, alert, normal mood/affect, oriented x 3 Appearance: Present: appropriate appearance, disheveled Eye contact: Present: cooperative, good eye contact, normal speech Thoughts: Present: normal thought pattern Cauti Physician Documentation - Urinary Catheter Management Urethral (Rodriguez) Urethral Indwelling: Yes Reason for Continuing Indwelling Catheter: Acute urinary retention Date of Insertion: 01/12/19 Time of Insertion: 14:15 Assessment/Plan - Problems/Diagnosis (1) Indwelling urinary catheter present Problem: Acute (2) Uncontrolled hypertension Problem: Acute (3) Lung cancer Problem: Acute (4) Poor social situation Problem: Acute (5) UTI (urinary tract infection) Problem: Acute
[2019-01-14] MEDS: TAMSULOSIN HCL 0.4 MG CAP.SR.24H PO SCH (17:20)
[2019-01-14] MEDS: NICOTINE 7 MG PATC TD SCH (20:53)
--- NOTE | 2019-01-15 07:53 | PN ---
Subjective - Date and Time Seen Date: 01/15/19 Time: 07:30 Subjective Narrative: No new concerns. Denies chest pain, shortness of breath, abdominal pain. He does not think he is currently constipated. Is not having trouble with his urinary catheter. Objective - Review of Systems Generalized/Overall Review: Denies: Chills Respiratory: Denies: Cough Cardiac: Denies: Chest Pain Abdominal: Denies: Nausea Genitourinary Symptoms: Reports: No Symptoms Reported - Vitals Vitals: Last Vital Signs Temp 36.6 C 01/15/19 06:56 Pulse 84 01/15/19 06:56 Resp 20 01/15/19 06:56 BP 163/81 H 01/15/19 06:56 Pulse Ox 94 01/15/19 06:56 - Exam Constitutional: Present: Alert - Oriented to self. Initially states the season is spring, then corrects to summer, Cooperative, Thin and frail Neck: Present: other - right upper neck mass Respiratory: Present: lungs clear, no respiratory distress Cardiovascular/Chest: Present: regular rate, rhythm Abdomen: Present: nontender Extremity: Absent: pedal edema Eye contact: Present: good eye contact Cauti Physician Documentation - Urinary Catheter Management Urethral (Rodriguez) Urethral Indwelling: Yes Date of Insertion: 01/12/19 Time of Insertion: 14:15 Assessment/Plan - Problems/Diagnosis (1) Confusion Problem: Chronic Narrative: Patient is answering questions, however is not oriented. Initially replies "spring," then corrects with "summer" when asked the season. He came to the hospital this admission because he had not been taking his medicines at home, and blood pressure was out of control. Medical power of commonwealth attorney is being determined, and appreciate case management assistance with this. Recommend placement in a facility after discharge. (2) Mass of left lung Problem: Chronic Narrative: Chart review shows this mass has been present, and he declined surgical intervention. He also has a visible right upper neck mass, and CT imagine done in September showed suspicious masses of the right and left parotids. There is a documented 18 pound weight loss since 11/29/18. He is not able to make decisions currently, and case management is helping determine who is able to make medical decisions for him. If he declined intervention, he is an appropriate hospice candidate. (3) Prostate enlargement Problem: Acute (4) Urinary retention Problem: Acute Narrative: Catheter placed by Dr. Varner in the OR last Tuesday. Per his notes, this is to be reassessed in 1 week. If this is to be long-term, recommend switching after 4 weeks. We will continue to assess his mental state, and may remove on Tuesday. He is unable to make medical decisions however, and will need to discuss this w ith his POA. With his chronic lung mass and confusion, leaving the Rodriguez catheter in place may be a comfort measure. (5) CKD (chronic kidney disease) stage 3, GFR 30-59 ml/min Problem: Chronic (6) Hypertension Problem: Chronic Qualifiers: Hypertension type: essential hypertension Qualified Code(s): I10 - Essential (primary) hypertension Narrative: Has been fluctuating, however appears controlled with 5 mg amlodipine and 20 mg lisinopril.
[2019-01-15] MEDS: amLODIPine BESYLATE 5 MG TABLET PO SCH (08:17)
[2019-01-15] MEDS: ENOXAPARIN SODIUM 40 MG/0.4 ML SYRG SC SCH (08:17)
[2019-01-15] MEDS: CIPROFLOXACIN HCL 250 MG TABLET PO SCH ×2 (08:17→20:40)
[2019-01-15] MEDS: LISINOPRIL 20 MG TABLET PO SCH (08:17)
[2019-01-15] MEDS: NICOTINE 7 MG PATC TD SCH (20:40)
[2019-01-15] MEDS: TAMSULOSIN HCL 0.4 MG CAP.SR.24H PO SCH (20:40)
[2019-01-16] MEDS ORDERED: amLODIPine BESYLATE 10 MG TABLET PO SCH (09:00)
[2019-01-16] MEDS: LISINOPRIL 20 MG TABLET PO SCH (09:31)
[2019-01-16] MEDS: ENOXAPARIN SODIUM 40 MG/0.4 ML SYRG SC SCH (09:31)
[2019-01-16] MEDS: CIPROFLOXACIN HCL 250 MG TABLET PO SCH (09:31)
[2019-01-16] MEDS ORDERED: LORazepam 0.5 MG TABLET PO SCH (10:00)
--- NOTE | 2019-01-16 13:58 | DS ---
(1) Confusion Problem: Chronic (2) Mass of left lung Problem: Chronic (3) Prostate enlargement Problem: Acute (4) Urinary retention Problem: Acute (5) CKD (chronic kidney disease) stage 3, GFR 30-59 ml/min Problem: Chronic (6) Hypertension Problem: Chronic Qualifiers: Hypertension type: essential hypertension Qualified Code(s): I10 - Essential (primary) hypertension (7) Obstructive uropathy Problem: Acute Description of Stay: Patient was brought to the ER after home health checked on him, and he was not doing well. It appeared that he had not ate or drank anything in several days. He did not have his medications, and could not explain why. His blood pressures were in the 200s over 100s initially. He was admitted for blood pressure management. He needed some IV labetalol to help, and home medications were restarted. His blood pressure was controlled on 10 mg amlodipine and 20 mg lisinopril. He was developing some anxiety, which was increasing his blood pressure. He was started on 0.5 mg Ativan every 6 hours. He was also having some difficulty urinating. Nursing staff tried to catheterize him with a coude catheter, without success. Urology was consulted, who brought him to the OR for cystoscopy and coud catheter placement over a wire. They recommend keeping the Rodriguez in place for at least a week. If its use for long-term, will need to be changed after 4 weeks. Urine culture was also positive, and he was started on Cipro. Recommend 7 days of treatment, which will be through 01/19/19. Depending on long-term treatment goals, the catheter may be able to be removed after 1 week. However, with the significant difficulty in placing the catheter, if comfort measures are pursued, this catheter could remain in place. Urology note recommended switching the catheter after 4 weeks if this is the intermodal customer service plan for urinary retention. He had some confusion throughout his stay. He was not oriented to time or place. He was estranged from his son prior to this visit, however that son and the son's fianc helped with medical decisions. It was felt he is not safe at home, and will be going to a facility after discharge. Chart review shows he has had a lung mass present for several years, for which he denied further intervention. 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 He has had an 18 pound weight loss over the last several weeks. Recommend POA be determined. He is a potential hospice candidate. Procedures Performed: see notes below - Flexible cystoscopy with a difficult Rodriguez insertion over a wire Results and Findings: Lab Pending Results 01/10/19 14:40: WBC 12.0 H, RBC 4.45 L, Hgb 12.8 L, Hct 38.6 L, MCV 86.7, MCH 28.8, MCHC 33.2, RDW 13.8, Plt Count 333, MPV 9.6, Immature Gran % (Auto) 0.50 H, Immature Gran # (Auto) 0.06 H, Neutrophils % 84.1 H, Lymphocytes % 7.7 L, Monocytes % 6.0, Eosinophils % 1.3, Basophils % 0.4, Nucleated RBC % 0.0, Neutrophils # 10.1 H, Lymphocytes # 0.92 L, Monocytes # 0.7, Eosinophils # 0.2, Absolute Basophils 0.1 01/10/19 14:40: Sodium 144 H, Plasma Sodium 144 H, Potassium 3.2 L, Chloride 104, Carbon Dioxide 25.6, Anion Gap 17.6 H, BUN 20 D, Creatinine 1.43 H, Est GFR (Non-Af Amer) 52 L, BUN/Creatinine Ratio 14.0, Random Glucose 94, Calcium 9.3, Calcium Adj for Albumin 10.1, Total Bilirubin 0.5, AST 16, ALT 10 L, Alkaline Phosphatase 81, Total Protein 7.2, Albumin 2.6 L, Ethyl Alcohol Less than 3.0 01/11/19 05:34: Sodium 138, Plasma Sodium 138, Potassium 3.0 L, Chloride 102, Carbon Dioxide 25.9, Anion Gap 13.1, BUN 21, Creatinine 1.28, Est GFR (Non-Af Amer) 59 L, BUN/Creatinine Ratio 16.4, Random Glucose 99, Calcium 8.4, Calcium Adj for Albumin 9.4, Total Bilirubin 0.4, AST 20, ALT 13 L, Alkaline Phosphatase 77, Total Protein 6.5, Albumin 2.3 L 01/11/19 08:00: Urine Color [place], Urine Appearance Clear, Urine pH 6.0, Ur Specific [place] 1.020, Urine Protein 15 H, Urine Glucose (UA) Negative, Urine Ketones 5, Urine Blood Negative, Urine Nitrate Negative, Urine Bilirubin Negative, Prot Sulfosalicylic Acd 1+, Urine Urobilinogen Normal, Ur Leukocyte Esterase Negative, Urine RBC None seen, Urine WBC None seen, Ur Epithelial Cells 0-5, Urine Bacteria None seen, Hyaline Casts Trace, Urine Culture Comments No culture indicated 01/11/19 08:00: Urine Opiates Screen Negative, Barbiturate Screen Negative, Ur Phencyclidine Scrn Negative, Urine Amphetamine Negative, U Benzodiazepines Scrn Negative, Urine Cocaine Screen Negative, Urine Marijuana (THC) Positive H 01/12/19 05:00: Sodium 138, Plasma Sodium 138, Potassium 4.0 D, Chloride 100, Carbon Dioxide 26.4, Anion Gap 15.6 H, BUN 15, Creatinine 1.19, Est GFR (Non-Af Amer) 65, BUN/Creatinine Ratio 12.6, Random Glucose 94, Calcium 8.3, Calcium Adj for Albumin 9.2, Total Bilirubin 0.5, AST 18, ALT 15 L, Alkaline Phosphatase 78, Total Protein 6.1 L, Albumin 2.5 L Discharge Location: [facility] Disposition: [facility] Condition: Stable Level of Care: SNF Discharge Activity: Activity as tolerated Discharge Diet: General/regular food [facility] Therapy: Physical Therapy, Occupation Therapy Referrals: Regina Torres MD [Primary Care Provider] - Additional Patient Instructions (free text): F/U with Urology in 2 weeks. Prescriptions (Any new or edited meds): LORazepam [Ativan] 0.5 mg PO Q6H #120 tab Ciprofloxacin HCl [Cipro] 250 mg PO BID #6 tab Tamsulosin HCl [Flomax] 0.4 mg PO DAILY@1800 #30 cap.sr.24h Lisinopril [Zestril] 20 mg PO DAILY #30 tab Complete Home Medications List: Complete Home Medication List: amlodipine 5 mg tablet 5 mg PO DAILY #90 tab 09/28/18 aspirin 325 mg tablet,delayed release 325 mg PO DAILY #90 tab 09/28/18 lisinopril 10 mg tablet 10 mg PO DAILY #90 tab 09/28/18 Ciprofloxacin HCl [Cipro] 250 mg PO BID #6 tab 01/16/19 LORazepam [Ativan] 0.5 mg PO Q6H #120 tab 01/16/19 Lisinopril [Zestril] 20 mg PO DAILY #30 tab 01/16/19 Tamsulosin HCl [Flomax] 0.4 mg PO DAILY@1800 #30 cap.sr.24h 01/16/19
[2019-01-16 15:07] VITALS: BP 137/78
== END 2019-01-16 14:45 | DRG 982 ==
LOC: ER 14:19 → MS 14:19 → OBSVTOIN 16:37 → MS 17:07
PROVIDERS: ADMIT Internal Medicine; ATTEND Internal Medicine
DX: E87.6 Hypokalemia; B96.20 Unspecified Escherichia coli [E. coli] as the cause of diseases classified elsewhere; R62.7 Adult failure to thrive; E78.5 Hyperlipidemia, unspecified; N39.0 Urinary tract infection, site not specified; D11.0 Benign neoplasm of parotid gland; R91.8 Other nonspecific abnormal finding of lung field; F41.9 Anxiety disorder, unspecified; F17.210 Nicotine dependence, cigarettes, uncomplicated; N18.3 Chronic kidney disease, stage 3 (moderate); R33.9 Retention of urine, unspecified; Z68.1 Body mass index [BMI] 19.9 or less, adult; N40.1 Benign prostatic hyperplasia with lower urinary tract symptoms; C34.90 Malignant neoplasm of unspecified part of unspecified bronchus or lung; I16.0 Hypertensive urgency; I12.9 Hypertensive chronic kidney disease with stage 1 through stage 4 chronic kidney disease, or unspecified chronic kidney disease; R41.0 Disorientation, unspecified; N13.8 Other obstructive and reflux uropathy
CPT/HCPCS: 36415; 70450; 71020; 71046; 80053; 80307; 80320; 81001; 85025; 87077; 87086; 87186; 96374; 96376; 97116; 97161; 99285; G0481